=== PATIENT | female | born 1970 | race Caucasian/White ===

== ENCOUNTER 2019-01-31 11:25 | Emergency (ER) | payer BC ==
[2019-01-31] MEDS ORDERED: Ondansetron 4 MG/2 ML SDV IVPUSH ONE (11:41)
[2019-01-31] MEDS ORDERED: Sodium Chloride 0.9% 10 ML Syringe FLUSH PRN (11:41)
[2019-01-31] MEDS ORDERED: Ketorolac 30 MG/ML SDV IVPUSH ONE (11:42)
[2019-01-31] MEDS ORDERED: Sodium Chloride 0.9% 1,000 ML IV SCH (11:45)
--- NOTE | 2019-01-31 11:47 | EDM.PDOC ---
ED HPI GENERAL MEDICAL PROBLEM - General Chief Complaint: Flank Pain Stated Complaint: ABDOMINAL/FLANK PAIN Time Seen by Provider: 01/31/19 11:36 Source of Information: Reports: Patient History Limitations: Reports: No Limitations - History of Present Illness INITIAL COMMENTS - FREE TEXT/NARRATIVE: The patient presents with left flank pain. She was diagnosed with a kidney stone last week in the clinic. She did a UA and she had blood. She may have passed a small stone over the weekend but today she has more pain in her left flank and it radiates to the left lower abdomen. She has no nausea or vomiting yet. She has no pain when she urinates. She has a history of kidney stones and there is a family history of kidney stones. She has no other symptoms like fever, chills, cough, chest pain or shortness of breath. She still has her gallbladder and appendix. Onset: Gradual Duration: Week(s): Location: Reports: Abdomen, Back Quality: Reports: Sharp Severity: Moderate Improves with: Reports: None Worsens with: Reports: None Associated Symptoms: Denies: Chest Pain, Cough, Fever/Chills, Headaches, Nausea/ Vomiting, Shortness of Breath Left Flank Pain Score (Numeric/FACES): 8 - Related Data Allergies Allergy/AdvReac Type Severity Reaction Status Date / Time No Known Allergies Allergy Verified 01/31/19 11:36 Home Meds: Home Meds Hydrocodone/Acetaminophen [Hydrocodon-Acetaminophen 5-325] 1 - 2 each PO Q6HR PRN #20 tablet 01/31/19 [Rx] Tamsulosin HCl [Flomax] 0.4 mg PO DAILY #7 cap.er.24h 01/31/19 [Rx] ED ROS GENERAL - Review of Systems Review Of Systems: See Below Constitutional: Reports: No Symptoms HEENT: Reports: No Symptoms Respiratory: Reports: No Symptoms Cardiovascular: Reports: No Symptoms Endocrine: Reports: No Symptoms GI/Abdominal: Reports: Abdominal Pain, Nausea, Vomiting : Reports: No Symptoms Musculoskeletal: Reports: Back Pain (Left flank) Neurological: Reports: No Symptoms ED EXAM, GI/ABD - Physical Exam Exam: See Below Exam Limited By: No Limitations General Appearance: Alert, No Apparent Distress Ears: Normal External Exam Nose: Normal Inspection Head: Atraumatic, Normocephalic Neck: Normal Inspection Respiratory/Chest: No Respiratory Distress, Lungs Clear, Normal Breath Sounds Cardiovascular: Regular Rate, Rhythm, No Edema, No Murmur GI/Abdominal Exam: Soft, No Organomegaly, No Mass, Tender (Mild to moderate tenderness to the left abdomen) Back Exam: CVA Tenderness (L) Extremities: Normal Inspection Course - Vital Signs Last Recorded V/S: Last Vital Signs Temp 97.8 F 01/31/19 11:34 Pulse 61 01/31/19 11:34 Resp 16 01/31/19 11:34 BP 147/77 H 01/31/19 11:34 Pulse Ox 100 01/31/19 11:34 - Orders/Labs/Meds Orders: Active Orders 24 hr Category Date Time Status Peripheral IV Care [RC] . DIRECTED Care 01/31/19 11:41 Active Sodium Chloride 0.9% [Normal Saline] 1,000 ml Med 01/31/19 11:45 Active IV ASDIRECTED Sodium Chloride 0.9% [Saline Flush] Med 01/31/19 11:41 Active 10 ml FLUSH ASDIRECTED PRN ED Antiemetic Medication Reflex [OM.PC] Stat Oth 01/31/19 11:41 Ordered Peripheral IV Insertion Adult [OM.PC] Stat Oth 01/31/19 11:41 Ordered Medication Orders Sodium Chloride (Normal Saline) 1,000 mls @ 125 mls/hr IV ASDIRECTED [facility] Last Admin: 01/31/19 12:13 Dose: 125 mls/hr Sodium Chloride (Saline Flush) 10 ml FLUSH ASDIRECTED PRN PRN Reason: Keep Vein Open Last Admin: 01/31/19 12:14 Dose: 10 ml Labs: Laboratory Tests 01/31/19 01/31/19 01/31/19 Range/Units 12:00 12:00 12:00 WBC 10.69 H (3.98-10.04) K/mm3 RBC 4.78 (3.98-5.22) M/mm3 Hgb 14.2 (11.2-15.7) gm/dl Hct 42.3 (34.1-44.9) % MCV 88.5 (79.4-94.8) fl MCH 29.7 (25.6-32.2) pg MCHC 33.6 (32.2-35.5) g/dl RDW Std Deviation 42.6 (36.4-46.3) fL Plt Count 260 (182-369) K/mm3 MPV 10.6 (9.4-12.3) fl Neut % (Auto) 70.4 (34.0-71.1) % Lymph % (Auto) 19.4 (19.3-51.7) % Brooks % (Auto) 9.3 (4.7-12.5) % Eos % (Auto) 0.4 L (0.7-5.8) Baso % (Auto) 0.3 (0.1-1.2) % Neut # (Auto) 7.54 H (1.56-6.13) K/mm3 Lymph # (Auto) 2.07 (1.18-3.74) K/mm3 Brooks # (Auto) 0.99 H (0.24-0.36) K/mm3 Eos # (Auto) 0.04 (0.04-0.36) K/mm3 Baso # (Auto) 0.03 (0.01-0.08) K/mm3 Sodium 136 (136-145) mEq/L Potassium 3.9 (3.5-5.1) mEq/L Chloride 102 (98-107) mEq/L Carbon Dioxide 23 (21-32) mEq/L Anion Gap 14.9 (5-15) BUN 13 (7-18) mg/dL Creatinine 1.0 (0.55-1.02) mg/dL Est Cr Clr Drug Dosing 55.68 mL/min Estimated GFR (MDRD) 59 (>60) mL/min BUN/Creatinine Ratio 13.0 L (14-18) Glucose 107 H (74-106) mg/dL Calcium 9.9 (8.5-10.1) mg/dL Total Bilirubin 1.2 H (0.2-1.0) mg/dL AST 28 (15-37) U/L ALT 33 (14-59) U/L Alkaline Phosphatase 95 (46-116) U/L Total Protein 7.5 (6.4-8.2) g/dl Albumin 4.0 (3.4-5.0) g/dl Globulin 3.5 gm/dL Albumin/Globulin Ratio 1.1 (1-2) Lipase 146 (73-393) U/L Urine Color Yellow (Yellow) Urine Appearance Clear (Clear) Urine pH 5.5 (5.0-8.0) Ur Specific [place] > or = 1.030 (1.005-1.030) Urine Protein 2+ H (Negative) Urine Glucose (UA) Negative (Negative) Urine Ketones 1+ H (Negative) Urine Occult Blood 3+ H (Negative) Urine Nitrite Negative (Negative) Urine Bilirubin Negative (Negative) Urine Urobilinogen 0.2 (0.2-1.0) Ur Leukocyte Esterase Negative (Negative) Urine RBC 20-30 H (0-5) /hpf Urine WBC 0-5 (0-5) /hpf Ur Epithelial Cells 0-5 (0-5) /hpf Urine Bacteria Moderate H (FEW) /hpf Urine Mucus Moderate H (FEW) /hpf Meds: Medications Generic Name Dose Route Start Last Admin Trade Name Freq PRN Reason Stop Dose Admin Sodium Chloride 1,000 mls @ 125 mls/hr 01/31/19 11:45 01/31/19 12:13 Normal Saline IV 125 mls/hr ASDIRECTED JOSH Administration Sodium Chloride 10 ml 01/31/19 11:41 01/31/19 12:14 Saline Flush FLUSH 10 ml ASDIRECTED PRN Administration Keep Vein Open Discontinued Medications Generic Name Dose Route Start Last Admin Trade Name Freq PRN Reason Stop Dose Admin Ketorolac Tromethamine 30 mg 01/31/19 11:42 01/31/19 12:14 Toradol IVPUSH 01/31/19 11:43 30 mg ONETIME ONE Administration Ondansetron HCl 4 mg 01/31/19 11:41 01/31/19 12:13 Zofran IVPUSH 01/31/19 11:42 4 mg ONETIME ONE Administration - Re-Assessments/Exams Free Text/Narrative Re-Assessment/Exam: 01/31/19 11:46 I ordered an IV NS at 125ml/hr, zofran 4mg IV, toradol 30mg IV, labs, UA and a CT of her abdomen and pelvis without contrast to look for a kidney stone. 01/31/19 13:47 Her WBC was a little elevated 10.69. Her CMP looks good. Her lipase is normal. Her UA shows blood but no UTI. Her CT shows multiple small nonobstructing calculi within the inferior left kidney. Obstructing stone within the proximal left ureter measuring 8mm causing proximal hydronephrosis. Equivocal second stone within or very close to the distal left ureter near the UVJ measuring 2mm. It this is within the left ureter this is causing no significant obstruction. Other incidental findings. The toradol was helping but the pain is getting worse again. I have called [facility]. 01/31/19 14:08 They can get her in February 09 at 2pm. I will discharge her home with flomax and something for pain. Departure - Departure Time of Disposition: 14:10 Disposition: Home, Self-Care 01 Condition: Good Clinical Impression: Ureteric colic, Ureteral calculus, left - Discharge Information *PRESCRIPTION DRUG MONITORING PROGRAM REVIEWED*: No *COPY OF PRESCRIPTION DRUG MONITORING REPORT IN PATIENT JOHN: No Prescriptions: Hydrocodone/Acetaminophen [Hydrocodon-Acetaminophen 5-325] 1 - 2 each PO Q6HR PRN #20 tablet PRN Reason: Pain Tamsulosin HCl [Flomax] 0.4 mg PO DAILY #7 cap.er.24h Referrals: PCP,None [Primary Care Provider] - Cody Kam MD [Consulting Physician] - 1 Week Forms: ED Department Discharge Additional Instructions: Take motrin or aleve for pain. If that does not help try the hydrocodone. Take flomax daily. Follow up with Dr Kam a urologist at [facility] in [place], February 09 at 2pm. Come early they have scheduled an x-ray at 1: 30pm. This is central time or [place] time. Please return if you are worse or call his office and maybe they can work you in sooner. Drink plenty of fluids. - My Orders Last 24 Hours: My Active Orders 01/31/19 11:41 Peripheral IV Care [RC] . DIRECTED Sodium Chloride 0.9% [Saline Flush] 10 ml FLUSH ASDIRECTED PRN ED Antiemetic Medication Reflex [OM.PC] Stat Peripheral IV Insertion Adult [OM.PC] Stat 01/31/19 11:45 Sodium Chloride 0.9% [Normal Saline] 1,000 ml IV ASDIRECTED - Assessment/Plan Last 24 Hours: My Active Orders 01/31/19 11:41 Peripheral IV Care [RC] . DIRECTED Sodium Chloride 0.9% [Saline Flush] 10 ml FLUSH ASDIRECTED PRN ED Antiemetic Medication Reflex [OM.PC] Stat Peripheral IV Insertion Adult [OM.PC] Stat 01/31/19 11:45 Sodium Chloride 0.9% [Normal Saline] 1,000 ml IV ASDIRECTED
--- NOTE | 2019-01-31 13:38 | CT ---
CT abdomen and pelvis Technique: Multiple axial sections were obtained from above the dome of the diaphragm inferiorly through the pubic symphysis. Intravenous contrast and oral contrast not utilized. Study was performed as a ureteral stone protocol. Comparison: No prior abdominal imaging. Findings: Multiple small nonobstructing calculi are seen inferiorly within the left kidney. Left kidney shows hydronephrosis which is caused by a proximal left ureteral stone measuring about 8 mm in size. Equivocal second calcification at the UVJ is noted within or close to the distal left ureter measuring 2 mm. This appears nonobstructing if it does represent a ureteral stone. Visualized lung bases show nothing acute. Liver contains no focal parenchymal abnormality. Spleen appears within normal limits. Adrenal glands show no nodule. Pancreas is within normal limits. Gallbladder contains no calcified gallstones. Adrenal glands are unremarkable. Aorta shows no aneurysm. No retroperitoneal adenopathy or mesenteric abnormalities are seen. No pelvic mass or adenopathy is seen. Small fat-containing umbilical hernia is noted. Appendix is seen which is normal in size. Bone window settings were reviewed which shows degenerative apophyseal change primarily at L4-L5. Impression: 1. Multiple small nonobstructing calculi within the inferior left kidney. 2. Obstructing stone within the proximal left ureter measuring 8 mm causing proximal hydronephrosis. 3. Equivocal second stone within or very close to the distal left ureter near the UVJ measuring 2 mm. If this is within the left ureter this is causing no significant obstruction. 4. Other incidental findings. Diagnostic code #3
== END 2019-01-31 14:20 | disposition home or self-care (01) ==
LOC: JD.ED 11:25
DX: N13.2 Hydronephrosis with renal and ureteral calculous obstruction (principal)
CPT/HCPCS: 36415; 74176; 80053; 81001; 83690; 85025; 96361; 96374; 96375; 99284; J1885; J2405; J7040; 99283